=== PATIENT | female | born 1945 | race Caucasian/White ===

== ENCOUNTER 2016-07-09 17:26 | Inpatient (IN) | payer OTHER ==
[~2016-07-09] VITALS: Ht 162.6 cm; Wt 61.2 kg
[2016-07-09] MEDS ORDERED: ONDANSETRON 4 MG VIAL ONE ×2 (21:01→22:46)
[2016-07-09] MEDS ORDERED: KETOROLAC 30 MG/ML VIAL ONE (21:02)
[2016-07-09] MEDS ORDERED: SODIUM CHLORIDE 0.9% 500 ML IV ONE (21:59)
[2016-07-09] MEDS ORDERED: DEXAMETHASONE 4 MG/ML VIAL ONE (22:46)
[2016-07-09] MEDS ORDERED: MORPHINE 4 MG/ML SYR ONE (22:47)
[2016-07-10] VITALS (27 sets, daily range): BP systolic 103–146; RESP 13–25; TEMP 98–98.3; Ht 162.6 cm; Wt 61.2 kg
[2016-07-10] MEDS ORDERED: ALU/MAG/SIM 30 ML UDC PO PRN (01:15)
[2016-07-10] MEDS ORDERED: MAG HYDROX 30 ML UDC PO PRN (01:15)
[2016-07-10] MEDS ORDERED: SALINE FLUSH 10 ML FLUSH PRN (01:15)
[2016-07-10] MEDS ORDERED: BISACODYL 10 MG SUPP RECTAL PRN (01:15)
[2016-07-10] MEDS ORDERED: PROMETHAZINE 25 MG/ML VIAL IV PRN (01:15)
[2016-07-10] MEDS ORDERED: BISACODYL EC 5 MG TAB PO PRN (01:15)
[2016-07-10] MEDS ORDERED: ONDANSETRON 4 MG VIAL IV PRN (01:15)
[2016-07-10] MEDS: DEXAMETHASONE 4 MG/ML VIAL IV SCH ×3 (01:53→15:33)
[2016-07-10] MEDS: LEVETIRACETAM INJ 1,000 MG in SODIUM CHLORIDE 0.9% 100 ML IV SCH ×3 (01:53→19:42)
[2016-07-10] MEDS: SALINE FLUSH 10 ML FLUSH SCH ×3 (01:54→19:42)
[2016-07-10] MEDS: SODIUM CHLORIDE 0.9% FLUSH BAG 500 ML IV SCH (05:54)
[2016-07-10] MEDS: FAMOTIDINE 20 MG TAB PO SCH ×2 (11:02→20:28)
[2016-07-10] MEDS: MORPHINE 2 MG/ML SYR IV PRN ×2 (15:35→23:43)
[2016-07-10] MEDS ORDERED: MAGNEVIST 15ML IV ONE (17:07)
[2016-07-10] MEDS: PRAMIPEXOLE 0.5 MG TAB PO SCH (21:56)
[2016-07-11] VITALS (17 sets, daily range): BP systolic 105–140; RESP 13–24; TEMP 96.9–98.1
[2016-07-11] MEDS: DEXAMETHASONE 4 MG/ML VIAL IV SCH ×3 (00:18→18:19)
[2016-07-11] MEDS ORDERED: PRAMIPEXOLE 0.5 MG TAB PO ONE (00:35)
[2016-07-11] MEDS: SODIUM CHLORIDE 0.9% FLUSH BAG 500 ML IV SCH (05:10)
[2016-07-11] MEDS: MORPHINE 2 MG/ML SYR IV PRN ×3 (07:52→22:29)
[2016-07-11] MEDS: SALINE FLUSH 10 ML FLUSH SCH ×2 (08:53→20:37)
[2016-07-11] MEDS: FAMOTIDINE 20 MG TAB PO SCH ×2 (08:53→20:36)
[2016-07-11] MEDS: LEVETIRACETAM INJ 1,000 MG in SODIUM CHLORIDE 0.9% 100 ML IV SCH ×2 (08:54→22:29)
[2016-07-11] MEDS: PRAMIPEXOLE 0.5 MG TAB PO SCH (20:36)
[2016-07-11] MEDS ORDERED: MISSING DOSE XX ONE (21:00)
[2016-07-12] MEDS: DEXAMETHASONE 4 MG/ML VIAL IV SCH ×3 (00:52→17:17)
[2016-07-12 03:28] VITALS: BP_SYST 138; RESP 16; TEMP 97.7
[2016-07-12] MEDS: SODIUM CHLORIDE 0.9% FLUSH BAG 500 ML IV SCH (06:03)
[2016-07-12 07:35] VITALS: BP_SYST 128; RESP 20; TEMP 97.5
[2016-07-12] MEDS: LEVETIRACETAM INJ 1,000 MG in SODIUM CHLORIDE 0.9% 100 ML IV SCH (08:39)
[2016-07-12] MEDS: SALINE FLUSH 10 ML FLUSH SCH ×2 (08:39→20:08)
[2016-07-12] MEDS: FAMOTIDINE 20 MG TAB PO SCH ×2 (08:39→20:09)
[2016-07-12] MEDS: MORPHINE 2 MG/ML SYR IV PRN (08:40)
[2016-07-12 11:17] VITALS: BP_SYST 104; RESP 20; TEMP 97.9
[2016-07-12] MEDS: NITROFURANTOIN 100 MG CAP PO SCH ×2 (12:18→20:09)
[2016-07-12] MEDS ORDERED: PROMETHAZINE 25 MG/ML VIAL IV PRN (13:15)
[2016-07-12 14:36] VITALS: BP_SYST 119; RESP 20; TEMP 98
[2016-07-12 19:44] VITALS: BP_SYST 123; RESP 18; TEMP 99.2
[2016-07-12] MEDS: PRAMIPEXOLE 0.5 MG TAB PO SCH (20:08)
[2016-07-12] MEDS: LEVETIRACETAM 250 MG TAB PO SCH (20:09)
[2016-07-13] VITALS (7 sets, daily range): BP systolic 106–137; RESP 16–20; TEMP 97.5–98.1
[2016-07-13] MEDS: DEXAMETHASONE 4 MG/ML VIAL IV SCH ×2 (01:01→08:00)
[2016-07-13] MEDS: SODIUM CHLORIDE 0.9% FLUSH BAG 500 ML IV SCH (04:31)
[2016-07-13] MEDS ORDERED: MISSING DOSE XX ONE (08:15)
[2016-07-13] MEDS ORDERED: DEXAMETHASONE 10 MG/ML VIAL IV SCH (08:19)
[2016-07-13] MEDS: FAMOTIDINE 20 MG TAB PO SCH (08:30)
[2016-07-13] MEDS: NITROFURANTOIN 100 MG CAP PO SCH (08:30)
[2016-07-13] MEDS: SALINE FLUSH 10 ML FLUSH SCH (08:30)
[2016-07-13] MEDS: LEVETIRACETAM 250 MG TAB PO SCH (08:30)
[2016-07-13] MEDS: MORPHINE 2 MG/ML SYR IV PRN (08:37)
== END 2016-07-13 16:22 | disposition hospice, home (50) | DRG 54 ==
LOC: ENRESERVTM → ENRESERVDT → ER 17:26 → EMR 23:25 → ENPENDDIS 23:25 → CCU 07-10 01:21 → 4NT 07-11 14:37
PROVIDERS: ADMIT Internal Medicine; ATTEND Internal Medicine
DX: C79.31 Secondary malignant neoplasm of brain (principal); G93.6 Cerebral edema; J44.9 Chronic obstructive pulmonary disease, unspecified; C79.00 Secondary malignant neoplasm of unspecified kidney and renal pelvis; C34.90 Malignant neoplasm of unspecified part of unspecified bronchus or lung; D75.89 Other specified diseases of blood and blood-forming organs; I10 Essential (primary) hypertension; F41.1 Generalized anxiety disorder; G40.909 Epilepsy, unspecified, not intractable, without status epilepticus; Z66 Do not resuscitate; Z92.21 Personal history of antineoplastic chemotherapy; Z92.3 Personal history of irradiation; E78.00 Pure hypercholesterolemia, unspecified; Z96.653 Presence of artificial knee joint, bilateral; Z79.51 Long term (current) use of inhaled steroids; G25.81 Restless legs syndrome; F17.200 Nicotine dependence, unspecified, uncomplicated
CPT/HCPCS: 36415; 70450; 70553; 71010; 77290; 77334; 80048; 80053; 81001; 82553; 82607; 82746; 82947; 84439; 84443; 84484; 85025; 85652; 87088; 93005; 94799; 95819; 96361; 96374; 96375; 96376; 96413; 99215; 99223; 99232; 99233; 99239